=== PATIENT | female | born 1985 | race Caucasian/White ===

== ENCOUNTER → 2021-11-25 | Outpatient (REF) | payer OTHER | LOC: M PLALAB 15:40 | PROVIDERS: ATTEND Advanced Practice Midwife | DX: Z36.85 Encounter for antenatal screening for Streptococcus B (principal) ==

== ENCOUNTER 2021-12-23 09:37 | Inpatient (IN) | payer OTHER ==
[~2021-12-23] VITALS: Ht 167.6 cm; Wt 90.0 kg
[2021-12-23] MEDS ORDERED: OXYTOCIN 30 UNITS IN 0.9% NaCl 500ML IV BAG (J2590) As Ordered ONE (09:40)
[2021-12-23 10:10] VITALS: BP 122/80
[2021-12-23] MEDS ORDERED: DIBUCAINE 1% OINTMENT 30GM TOP PRN (10:35)
[2021-12-23] MEDS ORDERED: METHYLERGONOVINE MALEATE 0.2 MG TAB PO PRN (10:35)
[2021-12-23] MEDS ORDERED: DOCUSATE SODIUM 100MG CAPSULE PO PRN (10:35)
[2021-12-23] MEDS ORDERED: ACETAMINOPHEN TAB 650MG DOSE (2X325MG) PO PRN (10:35)
[2021-12-23] MEDS ORDERED: OXYTOCIN DRIP 30 UNITS in IV 1 EA IV SCH (10:35)
[2021-12-23] MEDS ORDERED: ACETAMINOPHEN 500 MG TAB PO PRN (10:35)
[2021-12-23] MEDS ORDERED: IBUPROFEN 800 MG TAB PO PRN (10:35)
[2021-12-23] MEDS ORDERED: RHOGAM 300 MCG (1500 IU) INJ (J2790) IM SCH (10:35)
[2021-12-23] MEDS ORDERED: MOM 30ML SUSPENSION UDC PO PRN (10:35)
[2021-12-23] MEDS ORDERED: ANUSOL HC CREAM 30GM TOP PRN (10:35)
[2021-12-23 10:40] VITALS: BP 124/78
[2021-12-23 10:55] VITALS: BP 122/82
[2021-12-23 11:05] LABS: HEMATOCRIT 48.5 % (36.0-47.0); HEMOGLOBIN 16.3 g/dl (12.0-15.5); MEAN CORPUSCULAR HEMOGLOBIN 31.9 pg (27.0-33.0); MEAN CORPUSCULAR HGB CONC 33.6 g/dl (32.0-36.5); MEAN CORPUSCULAR VOLUME 94.9 fl (80.0-96.0); PLATELET COUNT, AUTOMATED 162 10^3/uL (150-450); RED BLOOD COUNT 5.11 10^6/uL (4.00-5.40); WHITE BLOOD COUNT 12.3 10^3/uL (4.0-10.0)
[2021-12-23 11:10] VITALS: BP 120/76
[2021-12-23 13:46] VITALS: BP 121/78
[2021-12-23 18:00] VITALS: BP 94/52
[2021-12-23] MEDS: IBUPROFEN 600MG TAB PO PRN (20:34)
[2021-12-24 06:00] VITALS: BP 115/69
[2021-12-24] MEDS: IBUPROFEN 600MG TAB PO PRN (06:31)
[2021-12-24] MEDS ORDERED: PRENATAL VITAMINS CHEWABLE TABLET PO SCH (09:00)
[2021-12-25] MEDS ORDERED: MEASLES,MUMPS,RUBELLA VACCINE INJ (MMR-II) (90707) SC.IMMUN ONE (09:00)
== END 2021-12-24 14:36 | disposition home or self-care (01) | DRG 560 ==
LOC: M LDI 09:37 → M OBS 13:42
PROVIDERS: ADMIT Obstetrics & Gynecology; ATTEND Obstetrics & Gynecology
PROC: 10E0XZZ Delivery of Products of Conception, External Approach (ICD-10-PCS; principal; 2021-12-23)
DX: O80 Encounter for full-term uncomplicated delivery (principal); Z37.0 Single live birth; Z3A.40 40 weeks gestation of pregnancy

== ENCOUNTER → 2023-09-18 | Outpatient (REF) | payer BC | LOC: M PLALAB 16:19 | PROVIDERS: ATTEND Obstetrics & Gynecology | DX: Z01.419 Encounter for gynecological examination (general) (routine) without abnormal findings (principal) | CPT/HCPCS: 87624; G0123 ==

== ENCOUNTER → 2025-06-04 | Outpatient (REF) | payer BC, OTHER ==
[2025-06-11 13:50] LABS: HPV APTIMA Not Detected (Not Detected)
== END ==
LOC: M SFHCWAGY 13:09
PROVIDERS: ATTEND Nurse Practitioner Family
DX: Z12.4 Encounter for screening for malignant neoplasm of cervix (principal)